=== PATIENT | male | born 1965 | race Caucasian/White ===

== ENCOUNTER 2017-09-29 12:14 | Outpatient (CLI) | payer OTHER | END 2017-09-29 12:15 | disposition home or self-care (01) | LOC: BICRAD 12:14 | PROVIDERS: ATTEND Internal Medicine | DX: Z02.71 Encounter for disability determination (principal); M47.896 Other spondylosis, lumbar region | CPT/HCPCS: 72100 ==

== ENCOUNTER 2018-08-04 11:22 | Emergency (ER) | payer BC ==
[2018-08-04] MEDS ORDERED: Adacel (T-DAP) 0.5 ML SYRINGE ONE (11:38)
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
[2018-08-04 13:20] LABS: #Basophils 0.1 thou/uL (0.0-0.2); #Eosinphils 0.1 thou/uL (0.0-0.7); #Monocytes 0.3 thou/uL (0.11-0.59); #Neutrophils 3.4 thou/uL (1.40-6.50); %Basophils 1.3 % (0.0-1.0); %Eosinophils 2.1 % (0.0-10.0); %Lymphocytes 34.4 % (21.0-51.0); %Monocytes 4.9 % (0.0-10.0); %Neutrophils 57.4 % (42.0-75.0); Hemoglobin 19.1 g/dL (14.0-18.0); Mean Corpuscular HGB CONC 33.4 g/dL (32.0-36.0); Mean Corpuscular Hemoglobin 29.8 pg (27.0-31.0); Mean Corpuscular Volume 89.1 fL (78.0-98.0); Mean Platelet Volume 9.6 fL (7.4-10.4); Platelet Count 149 thou/uL (130-400); RBC Distribution Width 12.4 % (11.5-14.5); Red Blood Cell (RBC) Count 6.41 mill/uL (4.70-6.10); White Blood Cell (WBC) Count 5.9 thou/uL (4.8-10.8)
[2018-08-04] MEDS ORDERED: Ketorolac Tromethamine 30 MG/ML VIAL ONE (13:31)
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
[2018-08-04 13:41] LABS: ALT (SGPT) 51 U/L (8-55); AST (SGOT) 37 U/L (5-34); Acetaminophen Less than 6.0 mcg/mL (10.0-30.0); Albumin 4.7 g/dL (3.5-5.0); Alcohol Less than 10 mg/dL (Less than 10); Alkaline Phosphatase 98 U/L (40-150); Anion Gap 17 mmol/L (10-20); BUN (Urea Nitrogen) 15 mg/dL (8.4-25.7); Calc. Creatinine Clearance 0 mL/min (70-130); Calcium 10.5 mg/dL (7.8-10.44); Carbon Dioxide 21 mmol/L (22-29); Chloride 102 mmol/L (98-107); Estimated GFR-MDRD 69; Globulin 3.6 g/dL (2.4-3.5); Glucose 185 mg/dL (70-105); Lipase 61 U/L (8-78); Potassium 3.9 mmol/L (3.5-5.1); Protein, Total 8.3 g/dL (6.0-8.3); Salicylate Less than 8.0 mg/dL (15.0-30.0); Sodium 136 mmol/L (136-145)
[2018-08-04] MEDS ORDERED: Bacitracin Zinc 1 Packet ONE ×2 (13:55→14:37)
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
== END 2018-08-04 15:45 | disposition home or self-care (01) ==
LOC: ERS 11:22
DX: S40.212A Abrasion of left shoulder, initial encounter (principal); S50.312A Abrasion of left elbow, initial encounter; S50.311A Abrasion of right elbow, initial encounter; S80.212A Abrasion, left knee, initial encounter; S80.211A Abrasion, right knee, initial encounter; M54.2 Cervicalgia; E11.9 Type 2 diabetes mellitus without complications; E78.00 Pure hypercholesterolemia, unspecified; Z79.84 Long term (current) use of oral hypoglycemic drugs; Z79.82 Long term (current) use of aspirin; Z23 Encounter for immunization; V29.9XXA Motorcycle rider (driver) (passenger) injured in unspecified traffic accident, initial encounter
CPT/HCPCS: 70450; 72125; 80053; 80307; 83690; 84484; 85025; 90471; 90715; 93005; 94760; 96372; J1885

== ENCOUNTER 2020-01-24 08:31 | Outpatient (CLI) | payer MEDICARE, BC ==
--- NOTE | 2020-01-24 12:08 | MRI ---
MRI LUMBAR SPINE NONCONTRAST: DATE: 01/24/2020. HISTORY: A 54-year-old male with ICD-10: M51.16, intervertebral disk disorder. Low back pain and left leg numbness. COMPARISON: None. FINDINGS: Five lumbar-type vertebrae. No spondylolisthesis or scoliosis. Vertebral body heights are maintaine d. Conus medullaris terminates at L2. T12-L1: Normal. L1-2: Disk desiccation and mild disk space narrowing. Minimal disk bulge. No central or neural for aminal stenosis. L2-3: Normal. L3-4: Minimal disk bulge. Otherwise, normal. L4-5: Mild bilateral facet DJD. Disk desiccation. Minimal disk space narrowing. Mild disk bulge. Moderate sized focal left far lateral disk herniation extending into the left neural foramen and enc roaching upon left lateral perivertebral space, where it mildly laterally displaces the exiting left L4 nerve root. There is only mild left neural foraminal stenosis caused by this. No significant rig ht neural foraminal stenosis. No central spinal canal stenosis. L5-S1: Minimal disk space narrowing. Disk desiccation. A right foraminal focal disk herniation whi ch abuts the undersurface of the exiting right L5 nerve root, without deforming it. Only mild right neural foraminal stenosis. No left neural foraminal stenosis and no central spinal canal stenosis. The right lateral recess is also effaced by the disk herniation, mildly displacing the right S1 nerve root. No central spinal canal stenosis. IMPRESSION: 1. Mild lumbar spondylosis. 2. At L5-S1, there is a right lateral and far lateral disk herniation that mildly displaces the righ t S1 nerve root, and contacts, but does not displace the right L5 nerve root. 3. At L4-5, there is a left foraminal disk herniation which displaces the exiting left L4 nerve root just lateral to the neural foramen. 4. No high-grade central spinal canal stenosis or high-grade neural foraminal stenosis, at any level . LITO Howard POS: ARMAAN
--- NOTE | 2020-01-24 12:14 | MRI ---
MRI THORACIC SPINE NONCONTRAST: DATE: 01/24/2020. HISTORY: A 54-year-old male with ICD-10: [id number], thoracic radiculopathy. COMPARISON: None. FINDINGS: A large amount of mediastinal and some prevertebral space fat. Left renal upper pole cyst. Vertebra l body heights are maintained. No bone marrow signal abnormality. No high-grade central spinal jacky l stenosis at any level. No emma cord compression. Thoracic spinal cord is normal in size and sign al, with no syrinx. No scoliosis. Scattered mild degenerative disk changes at a few levels, most no tably disk space narrowing at T8-9. No moderate-size or large disk herniation. No high-grade neural foraminal stenosis. At T3-4, there is a small right paracentral-lateral focal disk protrusion, best seen on sagittal images. IMPRESSION: 1. Mild thoracic spondylosis. 2. No major pathology of thoracic spine identified. 3. Mediastinal lipomatosis. POS: AH
== END 2020-01-24 08:32 | disposition home or self-care (01) ==
LOC: MRI 08:31
PROVIDERS: ATTEND Specialist
DX: M51.16 Intervertebral disc disorders with radiculopathy, lumbar region (principal); M47.24 Other spondylosis with radiculopathy, thoracic region; E88.2 Lipomatosis, not elsewhere classified; M47.26 Other spondylosis with radiculopathy, lumbar region; M51.17 Intervertebral disc disorders with radiculopathy, lumbosacral region
CPT/HCPCS: 72146; 72148